=== PATIENT | female | born 1970 | race Two or more races ===

== ENCOUNTER 2019-01-06 11:27 | Emergency (ER) | payer MEDICAID, MEDICARE, OTHER ==
[~2019-01-06] VITALS: Ht 175.3 cm; Wt 54.0 kg
[2019-01-06 13:54] VITALS: BP 128/70
--- NOTE | 2019-01-06 14:00 | NUR ---
for discharge Patient discharged to home in stable condition. Written and verbal after care instructions given. Patient verbalizes understanding of instruction.
== END 2019-01-06 14:31 | disposition home or self-care (01) ==
LOC: ER 11:27
DX: R10.9 Unspecified abdominal pain (principal); R20.0 Anesthesia of skin; Z88.0 Allergy status to penicillin; Z88.6 Allergy status to analgesic agent; Z88.8 Allergy status to other drugs, medicaments and biological substances